=== PATIENT | male | born 1990 | race Hispanic/Latino ===

== ENCOUNTER 2019-05-02 22:24 | Inpatient (IN) | payer SELFPAY ==
[2019-05-02 23:12] LABS: #Basophils 0.1 thou/uL (0.0-0.2); #Eosinphils 0.1 thou/uL (0.0-0.7); #Lymphocytes 2.4 thou/uL (1.20-3.40); #Monocytes 0.6 thou/uL (0.11-0.59); %Eosinophils 0.7 % (0.0-10.0); %Lymphocytes 29.4 % (21.0-51.0); %Neutrophils 61.9 % (42.0-75.0); Hemoglobin 16.2 g/dL (14.0-18.0); Mean Corpuscular HGB CONC 35.6 g/dL (32.0-36.0); Mean Corpuscular Hemoglobin 30.2 pg (27.0-31.0); Mean Corpuscular Volume 84.7 fL (78.0-98.0); Mean Platelet Volume 8.8 fL (7.4-10.4); Platelet Count 229 thou/uL (130-400); RBC Distribution Width 12.1 % (11.5-14.5); Red Blood Cell (RBC) Count 5.38 mill/uL (4.70-6.10); White Blood Cell (WBC) Count 8.1 thou/uL (4.8-10.8)
--- NOTE | 2019-05-02 23:16 | RAD ---
PORTABLE CHEST ONE VIEW: 05/02/19 at 11:05 p.m. HISTORY: Worsening vision, polyuria. FINDINGS: Comparison made with exam of 06/05/16. The heart size is normal. The lungs are expanded without focal areas of consolidation, pneumothoraces , or pleural effusions. IMPRESSION: No acute process. POS: [facility]
[2019-05-02 23:19] LABS: Bilirubin Negative (Negative); Blood, Urine Negative (Negative); Clarity Clear (Clear); Glucose, Urine (Dipstick) Greater than 1000 mg/dL (Negative); Leukocyte Negative Leu/uL (Negative); Nitrite Negative (Negative); Protein, Urine (Dipstick) Negative (Neg-Trace); Urobilinogen Normal mg/dL (Less than 2)
[2019-05-02 23:33] LABS: ALT (SGPT) 83 U/L (8-55); AST (SGOT) 37 U/L (5-34); Albumin 4.7 g/dL (3.5-5.0); Alkaline Phosphatase 200 U/L (40-150); Anion Gap 21 mmol/L (10-20); BUN (Urea Nitrogen) 12 mg/dL (8.9-20.6); Bilirubin, Total 1.1 mg/dL (0.2-1.2); Calc. Creatinine Clearance 0 mL/min (70-130); Calcium 10.3 mg/dL (7.8-10.44); Carbon Dioxide 21 mmol/L (22-29); Chloride 86 mmol/L (98-107); Estimated GFR-MDRD 51; Globulin 3.9 g/dL (2.4-3.5); Potassium 4.2 mmol/L (3.5-5.1); Protein, Total 8.6 g/dL (6.0-8.3); Sodium 124 mmol/L (136-145)
[2019-05-02 23:44] LABS: Glucose 749 mg/dL (70-105)
[2019-05-03 00:01] LABS: Base Excess-Venous 0.7 mmol/L (-2.0 to 3.0); Bicarbonate (HCO3v) 25.2 mmol/L (22.0-28.0); CO2 Tension (PvCO2) 39.3 mmHg (40.0-50.0); Calcium, Ionized 1.15 mmol/L (See Comments:); Chloride 97 mmol/L (98-107); Hemoglobin - Calc 16.2 g/dL (14.0-18.0); Potassium 3.9 mmol/L (3.5-5.1); Sodium 133 mmol/L (138-145); T. Carbon Dioxide 26.5 mmol/L (22.0-28.0); vO2 Saturation-calc 86.8 % (60.0-85.0)
[2019-05-03 00:35] LABS: Hemoglobin A1c 10.3 % (4.0-6.0)
[2019-05-03 02:13] VITALS: BMI 41.8
[2019-05-03] MEDS ORDERED: Dextrose 5% in Water 1,000 ML IV PRN (03:33)
[2019-05-03] MEDS ORDERED: Dextrose 50% Abboject 50 ML SYRINGE SLOW IVP PRN (03:33)
[2019-05-03] MEDS ORDERED: hydrALAZINE 20 MG/ML VIAL SLOW IVP PRN (03:33)
--- NOTE | 2019-05-03 04:01 | HP ---
CHIEF COMPLAINT: Feeling thirsty and going to the bathroom a lot. HISTORY OF PRESENT ILLNESS: Mr. Mae is a pleasant 28-year-old gentleman, who has no prior past medical history. He notes that in the last couple of weeks, he has been getting much more thirsty a lot and also was having to get up to go the bathroom often. He also noted some abdominal bloating and as a result, he got some colon health pills [id number]. He started taking these, but then noticed that his symptoms got progressively worse. He started vomiting off and on and then on the day of admission, was vomiting quite often and having quite a bit of gagging. For this reason, he came to the ER and was found to have an elevated blood glucose of 749 and for this reason, he is being admitted to the hospital for new onset diabetes. He denies having any fevers or chills. No night sweats and in general, no other symptoms. REVIEW OF SYSTEMS: CONSTITUTIONAL: There have been no fevers or chills. No night sweats. No weight loss. HEENT: He denies any headaches, but he has had some blurred vision. No sore throat. No rhinorrhea or neck pain. No adenopathy. PULMONARY: No hemoptysis. No cough. No wheezing. CARDIOVASCULAR: He denies any chest pain. No shortness of breath. No PND. No orthopnea. GASTROINTESTINAL: No abdominal pain, but he has had some nausea and vomiting. No hematemesis. No melena. GENITOURINARY: He did have some urinary frequency, but no hematuria. MUSCULOSKELETAL: No muscle pain, weakness, or joint pains. NEUROLOGIC: No focal weakness or numbness. No seizures. PSYCHIATRIC: No symptoms of anxiety or depression. SKIN AND INTEGUMENT: No skin changes. No rash. PAST MEDICAL HISTORY: Negative. PAST SURGICAL HISTORY: He has had a cholecystectomy. ALLERGIES: NO KNOWN DRUG ALLERGIES. SOCIAL HISTORY: He is engaged. He has 3 children. He is a nonsmoker. He occasionally drinks. He works in construction. FAMILY HISTORY: Significant for hypertension and his cousin has diabetes. CURRENT MEDICATIONS: None. PHYSICAL EXAMINATION: GENERAL: He is alert and oriented. He appears to be in no acute distress. He is well developed and well nourished. He does have morbid obesity. He is 5 feet 7 inches, 267 pounds with BMI of 41.8. VITAL SIGNS: Blood pressure was 146/92, heart rate 84, respiratory rate of 20, and temperature is 98.1. HEENT: His pupils are equal, round, and reactive. Extraocular muscles are intact. His sclerae are anicteric. Throat, there is no erythema. No exudates. NECK: No adenopathy. No bruits. LUNGS: Clear to auscultation. There is no wheezing, no rales, no rhonchi. CARDIOVASCULAR: He has a normal S1, S2. There is no S3 or S4. No murmurs, clicks, or rubs. ABDOMEN: Obese. It is soft. It is nontender, nondistended. Positive for bowel sounds. There is no rebound. No guarding. No organomegaly. EXTREMITIES: On his extremities, there is no clubbing or cyanosis. No edema. NEUROLOGICAL: The exam is nonfocal. LABORATORY DATA: Sodium is 124, potassium 4.2, chloride is 86, CO2 is 21, BUN of 12, creatinine of 1.6, and glucose is 749. Currently, the blood glucose is 385. IMAGING: He had a chest x-ray showing no acute process. Heart size is normal with no infiltrates or effusions. This is by my reading. ASSESSMENT: This is a pleasant 28-year-old gentleman, who presents to the emergency room with new onset diabetes mellitus. He also has an elevated creatinine and likely has some acute kidney injury, likely due to volume depletion due to the uncontrolled diabetes and also it was noted he has an elevation in his liver function test, in which the etiology is not 100% clear. 1. With regard to new onset diabetes, we will start him on IV fluids due to the volume depletion. I suspect that his renal function will improve and with his body habitus, I suspect he is a type 2 diabetic. Therefore, we will start him on metformin and glyburide and monitor his blood glucose and hopefully, he can forego the initiation of insulin at this time. 2. Acute kidney injury. We will continue IV hydration and recheck his renal function in the a.m. 3. Elevated liver function tests. We will get an abdominal ultrasound as well as a hepatitis panel, but I suspect it could be due to steatohepatitis. Further recommendations depend on the patient's clinical course. Job ID: [id number]
[2019-05-03] MEDS: Sodium Chloride 0.9% 1,000 ML IV SCH ×2 (05:08→13:30)
[2019-05-03] MEDS: HumaLOG 300 UNITS/3 ML VIAL SC PRN ×4 (05:08→20:01)
[2019-05-03] MEDS ORDERED: metFORMIN 500 MG TAB PO SCH (08:00)
[2019-05-03 08:16] LABS: Anion Gap 12 mmol/L (10-20); BUN (Urea Nitrogen) 11 mg/dL (8.9-20.6); Calc. Creatinine Clearance 193 mL/min (70-130); Calcium 9.1 mg/dL (7.8-10.44); Carbon Dioxide 25 mmol/L (22-29); Chloride 101 mmol/L (98-107); Estimated GFR-MDRD Greater than 90; Glucose 295 mg/dL (70-105); Potassium 3.5 mmol/L (3.5-5.1); Sodium 134 mmol/L (136-145)
[2019-05-03 08:34] LABS: HBSAg Index 0.16 S/CO (0-0.99); Hep B Surf Ag Non-Reactive S/CO (NonReactive); Hep C IgG Ab Non-Reactive (NonReactive); Hep C Index 0.09 S/CO (0-0.79)
[2019-05-03 08:36] LABS: HBCM Index 0.06 S/CO (0-0.79); Hepatitis B Core IgM Abs Non-Reactive (NonReactive)
[2019-05-03 09:22] LABS: Hep A IgM AB Non-Reactive (NonReactive); Hep A IgM S/CO 0.29 S/CO (0-0.79)
[2019-05-03] MEDS: glyBURIDE 5 MG TAB PO SCH (10:41)
[2019-05-03] MEDS: Enoxaparin Sodium 40 MG/0.4 ML SYRINGE SC SCH (10:42)
--- NOTE | 2019-05-03 11:42 | PDOC.HOSPP ---
- Subjective Encounter Date: 05/03/19 Encounter Time: 11:40 Subjective: Patient seen and examined, no new issues or complaints. - Objective Vital Signs & Weight: Vital Signs (12 hours) Temp Pulse Resp BP Pulse Ox 05/03/19 07:35 96 05/03/19 07:26 98.0 F 72 18 142/89 H 96 05/03/19 04:00 97.9 F 82 18 144/92 H 96 05/03/19 01:40 98.1 F 84 20 146/92 H 97 Weight Weight 267 lb 3.2 oz Result Diagrams: 05/02/19 23:01 05/03/19 07:40 Additional Labs: Accuchecks 05/03/19 05/03/19 05/03/19 11:02 04:27 01:43 POC Glucose 293 H 414 H 385 H 05/03/19 01:06 POC Glucose 483 H Hospitalist ROS - Medication Medications: Active Medications Generic Name Dose Route Start Last Admin Trade Name Freq PRN Reason Stop Dose Admin Enoxaparin Sodium 40 mg 05/03/19 09:00 05/03/19 10:42 Lovenox SC 40 mg 0900 JOHANA Administration Glyburide 5 mg 05/03/19 08:00 05/03/19 10:41 Diabeta PO 5 mg QAM-WM JOHANA Administration Sodium Chloride 1,000 mls @ 100 mls/hr 05/03/19 03:45 05/03/19 05:08 Normal Saline 0.9% IV 1,000 mls .Q10H JOHANA Administration Insulin Human Lispro 0 units 05/03/19 03:33 05/03/19 11:34 Humalog SC 6 unit .MODERATE SLIDING SC PRN Administration Moderate Correctional Scale - Exam General Appearance: NAD, awake alert General - other findings: obese Eye: PERRL, anicteric sclera ENT: normocephalic atraumatic, no oropharyngeal lesions Neck: supple, symmetric, no JVD, no thyromegaly Heart: RRR, no murmur, no gallops, no rubs Respiratory: CTAB, no wheezes, no rales, no ronchi Gastrointestinal: soft, non-tender, non-distended, normal bowel sounds Hosp A/P (1) Diabetes mellitus, new onset Code(s): E11.9 - TYPE 2 DIABETES MELLITUS WITHOUT COMPLICATIONS Status: Acute (2) THOM (acute kidney injury) Code(s): N17.9 - ACUTE KIDNEY FAILURE, UNSPECIFIED Status: Acute (3) Hypertension Code(s): I10 - ESSENTIAL (PRIMARY) HYPERTENSION Status: Acute - Plan - will DC metformin for now, given THOM risk of metabolic acidosis high - cont with sliding scale and glyburide - ULI/ARB - can DC with metformin but will avoid in presence of the THOM - labs in AM - case and plan d/w patient at length, he understood and agreed with this plan.
--- NOTE | 2019-05-03 11:52 | ULT ---
ABDOMINAL ULTRASOUND: Date: 05/03/19 COMPARISON: None. HISTORY: Abnormal liver function tests. FINDINGS: The visualized IVC and aorta appear grossly unremarkable. Detailed assessment of the abdomen/pelvis l imited on the basis of bowel gas and body habitus. The pancreas is not discretely visualized. The hep atic parenchyma is heterogeneous and echogenic suggesting hepatic steatosis. This limits assessment f or focal liver lesion and biliary dilatation. The patient reports history of cholecystectomy. Right kidney measures 12.7 cm in craniocaudal dimension and demonstrates no stone, hydronephrosis, or mass lesion. Common bile duct and main portal vein cannot be adequately visualized secondary to body habitus and b owel gas. Spleen appears mildly enlarged, measuring up to 13.7 cm. Detailed assessment of the left ki dney is limited. Left kidney measures 13.9 cm craniocaudal dimension and demonstrates no stone, hydro nephrosis, or mass. IMPRESSION: Technically limited examination demonstrating findings suggesting hepatic steatosis. Status post chol ecystectomy. POS: OFF
[2019-05-03] MEDS: Acetaminophen 325 MG TAB PO PRN (20:02)
[2019-05-04] MEDS: Sodium Chloride 0.9% 1,000 ML IV SCH ×2 (00:45→08:58)
[2019-05-04] MEDS: Acetaminophen 325 MG TAB PO PRN (03:59)
[2019-05-04 05:49] LABS: Anion Gap 16 mmol/L (10-20); BUN (Urea Nitrogen) 11 mg/dL (8.9-20.6); Calc. Creatinine Clearance 208 mL/min (70-130); Calcium 8.7 mg/dL (7.8-10.44); Carbon Dioxide 19 mmol/L (22-29); Chloride 102 mmol/L (98-107); Estimated GFR-MDRD Greater than 90; Glucose 286 mg/dL (70-105); Potassium 3.6 mmol/L (3.5-5.1); Sodium 133 mmol/L (136-145)
[2019-05-04 05:52] LABS: #Basophils 0.1 thou/uL (0.0-0.2); #Eosinphils 0.2 thou/uL (0.0-0.7); #Lymphocytes 2.5 thou/uL (1.20-3.40); #Monocytes 0.4 thou/uL (0.11-0.59); #Neutrophils 4.5 thou/uL (1.40-6.50); %Basophils 0.8 % (0.0-1.0); %Eosinophils 2.6 % (0.0-10.0); %Lymphocytes 32.8 % (21.0-51.0); %Monocytes 5.1 % (0.0-10.0); %Neutrophils 58.6 % (42.0-75.0); Hemoglobin 13.9 g/dL (14.0-18.0); Mean Corpuscular HGB CONC 35.8 g/dL (32.0-36.0); Mean Corpuscular Hemoglobin 29.6 pg (27.0-31.0); Mean Corpuscular Volume 82.7 fL (78.0-98.0); Mean Platelet Volume 8.2 fL (7.4-10.4); Platelet Count 179 thou/uL (130-400); RBC Distribution Width 11.9 % (11.5-14.5); Red Blood Cell (RBC) Count 4.71 mill/uL (4.70-6.10); White Blood Cell (WBC) Count 7.6 thou/uL (4.8-10.8)
[2019-05-04] MEDS: HumaLOG 300 UNITS/3 ML VIAL SC PRN ×4 (05:53→20:43)
[2019-05-04] MEDS: glyBURIDE 5 MG TAB PO SCH (08:54)
[2019-05-04] MEDS: Enoxaparin Sodium 40 MG/0.4 ML SYRINGE SC SCH (08:54)
--- NOTE | 2019-05-04 12:48 | PDOC.HOSPP ---
- Subjective Encounter Date: 05/04/19 Encounter Time: 11:45 Subjective: no abd pain or sob at bedside feels better, is catching up lost sleep per patient - Objective Vital Signs & Weight: Vital Signs (12 hours) Temp Pulse Resp BP Pulse Ox 05/04/19 08:00 97.5 F L 64 18 150/99 H 97 05/04/19 04:00 98.3 F 73 18 148/97 H 98 Weight Weight 267 lb 3.2 oz I&O: 05/03/19 05/04/19 05/05/19 06:59 06:59 06:59 Intake Total 3920 Balance 3920 Result Diagrams: 05/04/19 05:07 05/04/19 05:07 Additional Labs: Accuchecks 05/04/19 05/04/19 05/04/19 12:00 04:36 00:51 POC Glucose 260 H 277 H 361 H 05/03/19 05/03/19 19:56 16:14 POC Glucose 261 H 373 H Hospitalist ROS - Medication Medications: Active Medications Generic Name Dose Route Start Last Admin Trade Name Freq PRN Reason Stop Dose Admin Acetaminophen 650 mg 05/03/19 03:33 05/04/19 03:59 Tylenol PO 650 mg Q4H PRN Administration Headache/Fever/Mild Pain (1-3) Enoxaparin Sodium 40 mg 05/03/19 09:00 05/04/19 08:54 Lovenox SC 40 mg 0900 JOHANA Administration Glyburide 5 mg 05/03/19 08:00 05/04/19 08:54 Diabeta PO 5 mg QAM-WM JOHANA Administration Sodium Chloride 1,000 mls @ 100 mls/hr 05/03/19 03:45 05/04/19 08:58 Normal Saline 0.9% IV 1,000 mls .Q10H JOHANA Administration Insulin Human Lispro 0 units 05/03/19 03:33 05/04/19 12:00 Humalog SC 6 unit .MODERATE SLIDING SC PRN Administration Moderate Correctional Scale Insulin Human Lispro 0 units 05/03/19 03:33 05/03/19 20:01 Humalog SC 3 unit .BEDTIME SLIDING SC PRN Administration Bedtime Correctional Scale - Exam General Appearance: NAD, awake alert Eye: PERRL, anicteric sclera ENT: no oropharyngeal lesions, moist mucosa Neck: supple, no JVD Heart: RRR, no murmur Respiratory: no wheezes, no rales Gastrointestinal: soft, non-tender, normal bowel sounds Extremities: no cyanosis, no clubbing, no edema Skin: normal turgor, no lesions Neurological: CN's grossly intact, no focal deficits Psychiatric: normal affect, A&O x 3 Hosp A/P (1) Diabetes mellitus, new onset Code(s): E11.9 - TYPE 2 DIABETES MELLITUS WITHOUT COMPLICATIONS Status: Acute (2) THOM (acute kidney injury) Code(s): N17.9 - ACUTE KIDNEY FAILURE, UNSPECIFIED Status: Resolved (3) Obesity Code(s): E66.9 - OBESITY, UNSPECIFIED Status: Chronic Qualifiers: Obesity classification: adult class 3 (BMI >= 40) Body mass index: BMI 40.0 -44.9 (4) Hypertension Code(s): I10 - ESSENTIAL (PRIMARY) HYPERTENSION Status: Chronic Qualifiers: Hypertension type: essential hypertension Qualified Code(s): I10 - Essential (primary) hypertension - Plan on glyburide, add metformin (renal function is normal) hemostable dc plan in am encourage po fluid intake, will dc iv fluids to amb as tolerated diabetic and dietary education prior to discharge
[2019-05-04] MEDS: Ibuprofen 200 MG TAB PO PRN (14:04)
[2019-05-04] MEDS: Cepastat Lozenges 1 LOZ PO PRN ×2 (15:53→23:05)
[2019-05-04] MEDS: metFORMIN 500 MG TAB PO SCH (17:23)
[2019-05-05] MEDS: Ibuprofen 200 MG TAB PO PRN ×2 (01:04→12:26)
[2019-05-05] MEDS: HumaLOG 300 UNITS/3 ML VIAL SC PRN ×2 (05:27→12:19)
[2019-05-05] MEDS: metFORMIN 500 MG TAB PO SCH (08:26)
[2019-05-05] MEDS: glyBURIDE 5 MG TAB PO SCH (08:26)
[2019-05-05] MEDS: Enoxaparin Sodium 40 MG/0.4 ML SYRINGE SC SCH (08:26)
[2019-05-05 12:35] VITALS: BP 146/97; TEMP 98.8
--- NOTE | 2019-05-05 15:55 | DIS ---
DATE OF ADMISSION: 05/03/2019 DATE OF DISCHARGE: 05/05/2019 DISCHARGE DISPOSITION: Home. PRIMARY DISCHARGE DIAGNOSES: New-onset diabetes mellitus type 2; obesity; mild hypertension; acute kidney injury on arrival, resolved. PROCEDURES DONE DURING HOSPITALIZATION: Chest x-ray done, showed no acute process. Right upper quadrant abdominal ultrasound done, showed prior history of cholecystectomy, hepatic steatosis was incidentally noted. Urine culture, no growth. Hemoglobin and hematocrit 13 and 38, platelet count 179, MCV is 82. Initial BUN and creatinine were 12 and 1.6 with serum glucose of 749 on admission. HbA1c 10.3. TSH 2.91. Hepatitis panel was negative. DISCHARGE MEDICATIONS: 1. Glyburide 5 mg p.o. daily. 2. Metformin 500 mg p.o. twice daily. ALLERGIES: NO KNOWN DRUG ALLERGIES. DISCHARGE PLAN: The patient to follow up with primary care physician in 1 week. He has been advised to check fingerstick glucose twice daily and record for a period of 10 days to follow up with primary care physician for changes in his medication. BRIEF COURSE DURING HOSPITALIZATION: The patient initially came to ER with complaints of feeling thirsty and urinating a lot. He was found to be a new diabetic and had acute kidney injury as well with moderate to severe dehydration. The patient was aggressively hydrated and was slowly titrated on medications for his diabetes. He was also given diabetic education along with counseling regarding diet and exercise. His acute kidney injury is completely resolved. He is tolerating oral solid diet, ambulating, and eating well prior to discharge. He is hemodynamically stable and will be shortly discharged home. He has been placed on glyburide and metformin. He is counseled to check fingerstick glucose twice daily and record to follow up with his primary care physician for any changes to be made for his diabetic medication. The patient plans to go to [employer] with tax papers, so he can get healthcare and medication help. Please note, I have seen and examined the patient on the day of discharge. Job ID: [id number]
== END 2019-05-05 12:52 | disposition home or self-care (01) | DRG 638 ==
LOC: ERS 22:24 → T4-B 05-03 00:17
PROVIDERS: ADMIT Internal Medicine; ATTEND Internal Medicine
DX: E11.9 Type 2 diabetes mellitus without complications (principal); N17.9 Acute kidney failure, unspecified; Z68.41 Body mass index [BMI] 40.0-44.9, adult; Z90.49 Acquired absence of other specified parts of digestive tract; R74.8 Abnormal levels of other serum enzymes; I10 Essential (primary) hypertension; E66.9 Obesity, unspecified
CPT/HCPCS: 36415; 36416; 71045; 76700; 80048; 80053; 80074; 81003; 82010; 82330; 82435; 82803; 83036; 84132; 84295; 84443; 85014; 85025; 87086; 96360; 96361; J1650

== ENCOUNTER 2020-07-12 14:22 | Inpatient (IN) | payer SELFPAY ==
[2020-07-12 15:27] LABS: #Basophils 0.1 thou/uL (0.0-0.2); #Eosinphils 0.1 thou/uL (0.0-0.7); #Monocytes 0.6 thou/uL (0.11-0.59); #Neutrophils 4.8 thou/uL (1.40-6.50); %Basophils 1.1 % (0.0-1.0); %Eosinophils 1.1 % (0.0-10.0); %Lymphocytes 26.2 % (21.0-51.0); %Monocytes 7.5 % (0.0-10.0); %Neutrophils 64.2 % (42.0-75.0); Hemoglobin 16.1 g/dL (14.0-18.0); Mean Corpuscular HGB CONC 36.2 g/dL (32.0-36.0); Mean Corpuscular Volume 85.7 fL (78.0-98.0); Mean Platelet Volume 8.8 fL (7.4-10.4); Platelet Count 253 thou/uL (130-400); Red Blood Cell (RBC) Count 5.18 mill/uL (4.70-6.10); White Blood Cell (WBC) Count 7.5 thou/uL (4.8-10.8)
[2020-07-12 15:40] LABS: Bilirubin Negative (Negative); Blood, Urine Negative (Negative); Clarity Clear (Clear); Glucose, Urine (Dipstick) Greater than 1000 mg/dL (Negative); Ketone, Urine Negative (Negative); Leukocyte Negative Leu/uL (Negative); Nitrite Negative (Negative); Protein, Urine (Dipstick) Negative (Neg-Trace); Specific Gravity, Urine 1.027 (1.002-1.036); Urobilinogen Normal mg/dL (Less than 2); pH, Urine 6.5 (5.0-9.0)
[2020-07-12 15:46] LABS: ALT (SGPT) 30 U/L (8-55)
[2020-07-12 15:52] LABS: AST (SGOT) 23 U/L (5-34); Alkaline Phosphatase 190 U/L (40-110); Anion Gap 18 mmol/L (10-20); BUN (Urea Nitrogen) 16 mg/dL (8.9-20.6); Bilirubin, Total 0.7 mg/dL (0.2-1.2); Calc. Creatinine Clearance 0 mL/min (70-130); Calcium 9.1 mg/dL (7.8-10.44); Carbon Dioxide 24 mmol/L (22-29); Chloride 86 mmol/L (98-107); Estimated GFR-MDRD 43; Globulin 4.9 g/dL (2.4-3.5); Phosphorus 3.7 mg/dL (2.3-4.7); Potassium 5.5 mmol/L (3.5-5.1); Protein, Total 8.9 g/dL (6.0-8.3); Sodium 122 mmol/L (136-145)
[2020-07-12 16:00] LABS: Glucose 977 mg/dL (70-105)
[2020-07-12] MEDS ORDERED: Insulin Regular 300 UNITS/3 ML VIAL ONE (16:19)
[2020-07-12 17:08] LABS: Base Excess-Venous -1.3 mmol/L (-2.0 to 3.0); Bicarbonate (HCO3v) 22.8 mmol/L (22.0-28.0); CO2 Tension (PvCO2) 35.7 mmHg (40.0-50.0); Calcium, Ionized 0.91 mmol/L (1.15-1.33); Chloride 92 mmol/L (98-107); Potassium 5.7 mmol/L (3.5-5.1); Sodium 122 mmol/L (138-145); T. Carbon Dioxide 23.9 mmol/L (22.0-28.0); vO2 Saturation-calc 99.5 % (60.0-85.0)
[2020-07-12 18:51] LABS: Critical Call Chemistry D; Glucose 614 mg/dL (70-105)
[2020-07-12] MEDS ORDERED: Insulin Regular 100 units/100 ml in NS IVPB SCH (20:15)
[2020-07-12] MEDS ORDERED: Ondansetron ODT 4 MG TAB SL PRN (23:00)
[2020-07-12] MEDS: Sodium Chloride 0.9% 1,000 ML IV SCH (23:00)
[2020-07-12] MEDS ORDERED: Ondansetron PF 4 MG/2 ML Vial IVP PRN (23:00)
[2020-07-12] MEDS ORDERED: Acetaminophen 325 MG TAB PO PRN (23:00)
[2020-07-12] MEDS ORDERED: Metoprolol Tartrate 5 MG/5 ML VIAL IVP PRN (23:41)
[2020-07-13 00:04] VITALS: BMI 40.2
[2020-07-13] MEDS ORDERED: FLU VACC QS2020-21(6MOS UP)/PF 60 MCG/0.5 ML SYRINGE IM ONE ×2 (00:15→09:00)
[2020-07-13 00:41] LABS: Anion Gap 18 mmol/L (10-20); BUN (Urea Nitrogen) 14 mg/dL (8.9-20.6); Calc. Creatinine Clearance 173 mL/min (70-130); Calcium 8.8 mg/dL (7.8-10.44); Carbon Dioxide 19 mmol/L (22-29); Chloride 102 mmol/L (98-107); Estimated GFR-MDRD 88; Glucose 351 mg/dL (70-105); Potassium 3.6 mmol/L (3.5-5.1); Sodium 135 mmol/L (136-145)
--- NOTE | 2020-07-13 00:43 | HP ---
REASON FOR ADMISSION: Increased sleepiness and uncontrolled blood sugar level. 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 He also has not been taking his blood pressure medication and for the past 3 weeks, his sugar has been elevated. He has been urinating a lot and having episodes of diarrhea. He felt that he is going to pass out today and that is why he came to the ER. He was found to have a glucose level of 500. He was started on insulin drip and currently he is in the [facility]. PAST MEDICAL HISTORY: 1. Diabetes. 2. High blood pressure. SOCIAL HISTORY: Quit smoking 4 months ago. PAST SURGICAL HISTORY: Cholecystectomy. ALLERGIES: NO NOTE OF ANY DRUG ALLERGY. FAMILY HISTORY: Negative for premature coronary artery disease. REVIEW OF SYSTEMS: All systems reviewed; except for the above mentioned, found to be negative. PHYSICAL EXAMINATION: GENERAL: Awake, alert, oriented, does not appear in distress. VITAL SIGNS: His blood pressure is 142/87, his heart rate is 104, saturating 99% on room air, temperature is 97.7. HEENT: Head is nontraumatic, normocephalic. Pupils equal, reactive. Extraocular movements are intact. Nonicteric sclerae. Well-injected conjunctivae. Oral mucosa normal. Nasal mucosa normal. NECK: Supple. No adenopathy. No murmur. Thyroid is not palpable. Trachea is midline. No supraclavicular adenopathy. HEART: S1, S2 regular. No murmurs. No gallops. No friction rubs noted. No displacement of PMI. LUNGS: Clear to auscultation bilaterally. No wheezes, rhonchi, or crackles. ABDOMEN: Bowel sounds are positive. Nontender abdomen. No hepatosplenomegaly. EXTREMITIES: No lower extremity edema. No cyanosis. NEUROLOGIC: Cranial nerves 2-12 within normal limits. Normal motor function. Normal sensory function. Normal reflexes. LABORATORY DATA: Blood work shows WBC 7.5, hemoglobin 16.1, platelets of 253. ABG shows a pH of 7.412. Sodium of 122, potassium 5.7, anion gap of 18. Urinalysis is negative for infection. ASSESSMENT AND PLAN: This is a 29-year-old male patient, presenting with hyperosmotic nonketotic hyperglycemia. He is admitted to the [facility] and he is on insulin drip. We will continue with that following our protocol. We will continue with aggressive fluid hydration. When his glycemic level is controlled, we can switch him to an insulin sliding scale and long-acting insulin. For DVT prophylaxis, he will be on Lovenox. For high blood pressure, he will be on Lopressor IV on as needed basis. Job ID: [id number]
[2020-07-13 03:42] LABS: Anion Gap 15 mmol/L (10-20); BUN (Urea Nitrogen) 14 mg/dL (8.9-20.6); Calc. Creatinine Clearance 201 mL/min (70-130); Calcium 8.7 mg/dL (7.8-10.44); Carbon Dioxide 17 mmol/L (22-29); Chloride 107 mmol/L (98-107); Estimated GFR-MDRD Greater than 90; Glucose 238 mg/dL (70-105); Potassium 4.3 mmol/L (3.5-5.1); Sodium 135 mmol/L (136-145)
[2020-07-13 05:07] LABS: Band 1 % (5-11); Eosinophils 4 % (0-10); Hemoglobin 15.4 g/dL (14.0-18.0); Lymphocytes 35 % (21-51); MDiff Complete? YES; Mean Corpuscular HGB CONC 36.4 g/dL (32.0-36.0); Mean Corpuscular Hemoglobin 30.4 pg (27.0-31.0); Mean Corpuscular Volume 83.6 fL (78.0-98.0); Mean Platelet Volume 8.8 fL (7.4-10.4); Monocytes 9 % (0-10); Neutrophil 50 % (42-75); Platelet Count 190 thou/uL (130-400); RBC Distribution Width 11.9 % (11.5-14.5); Reactive Lymphocytes 1 % (0-10); Red Blood Cell (RBC) Count 5.06 mill/uL (4.70-6.10); White Blood Cell (WBC) Count 9.2 thou/uL (4.8-10.8)
[2020-07-13] MEDS: Sodium Chloride 0.9% 1,000 ML IV SCH (06:17)
--- NOTE | 2020-07-13 07:13 | PDOC.HOSPP ---
- Subjective Encounter Date: 07/13/20 Encounter Time: 07:09 Subjective: feels better, more alert - Objective Vital Signs & Weight: Vital Signs (12 hours) Temp Pulse Ox 07/13/20 04:00 97.3 F L 07/12/20 23:59 97.7 F 07/12/20 22:56 98.8 F 07/12/20 22:45 99 Weight Weight 249 lb 4.8 oz Result Diagrams: 07/13/20 03:20 07/13/20 03:20 Additional Labs: Accuchecks 07/13/20 07/13/20 07/13/20 05:00 04:12 03:05 POC Glucose 190 H 186 H 259 H 07/13/20 07/13/20 07/12/20 02:20 00:46 23:43 POC Glucose 258 H 289 H 370 H 07/12/20 07/12/20 23:07 21:08 POC Glucose 336 H 378 H Hospitalist ROS - Medication Medications: Active Medications Generic Name Dose Route Start Last Admin Trade Name Hiramq PRN Reason Stop Dose Admin Sodium Chloride 1,000 mls @ 125 mls/hr 07/12/20 23:00 07/13/20 06:17 Normal Saline 0.9% IV 07/13/20 08:20 1,000 mls .Q8H JOHANA Administration - Exam General Appearance: awake alert Neck: no JVD Heart: RRR, no murmur Respiratory: CTAB Gastrointestinal: soft, non-distended, normal bowel sounds Extremities: no edema Hosp A/P (1) DM (diabetes mellitus), type 2, uncontrolled, with hyperosmolarity Code(s): E11.00 - TYPE 2 DIAB W HYPROSM W/O NONKET HYPRGLY-HYPROS COMA ([facility]); E11.65 - TYPE 2 DIABETES MELLITUS WITH HYPERGLYCEMIA Status: Acute (2) Non compliance w medication regimen Code(s): Z91.14 - PATIENT'S OTHER NONCOMPLIANCE WITH MEDICATION REGIMEN Status: Acute (3) Hypertension Code(s): I10 - ESSENTIAL (PRIMARY) HYPERTENSION Status: Chronic Qualifiers: Hypertension type: essential hypertension Qualified Code(s): I10 - Essential (primary) hypertension - Plan HgA1c DC iv insulin accu/ss/ start levemir ULI for HTN
[2020-07-13] MEDS ORDERED: Dextrose 50% Abboject 50 ML SYRINGE SLOW IVP PRN (07:17)
[2020-07-13] MEDS ORDERED: Dextrose 5% in Water 1,000 ML IV PRN (07:17)
[2020-07-13] MEDS: Heparin 5,000 UNITS/ML VIAL SC SCH ×3 (07:20→20:59)
[2020-07-13] MEDS: Lisinopril 5 MG TAB PO SCH (07:24)
[2020-07-13 08:16] LABS: Hemoglobin A1c Greater than 14.0 % (4.0-6.0)
[2020-07-13] MEDS: Insulin Glargine 10 UNITS in Pre-Filled Syringe 1 EACH SC SCH (09:20)
[2020-07-13] MEDS: HumaLOG 300 UNITS/3 ML VIAL SC PRN ×2 (18:10→20:59)
[2020-07-14] MEDS: HumaLOG 300 UNITS/3 ML VIAL SC PRN ×2 (06:11→11:03)
[2020-07-14 07:55] VITALS: TEMP 97.7
[2020-07-14] MEDS: Insulin Glargine 10 UNITS in Pre-Filled Syringe 1 EACH SC SCH (08:41)
[2020-07-14] MEDS: Lisinopril 5 MG TAB PO SCH (08:41)
[2020-07-14] MEDS: Heparin 5,000 UNITS/ML VIAL SC SCH (08:41)
[2020-07-14 09:20] LABS: Anion Gap 14 mmol/L (10-20); BUN (Urea Nitrogen) 10 mg/dL (8.9-20.6); Calc. Creatinine Clearance 182 mL/min (70-130); Carbon Dioxide 22 mmol/L (22-29); Chloride 102 mmol/L (98-107); Estimated GFR-MDRD Greater than 90; Glucose 340 mg/dL (70-105); Potassium 3.8 mmol/L (3.5-5.1); Sodium 134 mmol/L (136-145)
[2020-07-14 10:56] VITALS: BP 137/89
--- NOTE | 2020-07-14 11:13 | DIS ---
DATE OF ADMISSION: 07/12/2020 DATE OF DISCHARGE: 07/14/2020 PRIMARY CARE PHYSICIAN: None. FINAL DIAGNOSES: Type 2 diabetes with hyperosmolar state, hypertension, acidosis. DISCHARGE MEDICATIONS: 1. Insulin glargine 15 units subcu q.a.m. 2. Lisinopril 5 mg a day. ALLERGIES: NONE. CODE STATUS: Full. PENDING AT TIME OF DISCHARGE: Nothing. CONSULTATIONS: None. PROCEDURES: None. HOSPITAL COURSE: The patient admitted to the emergency room with high blood sugar and sleepiness. His laboratory, initial blood sugar was 977, put on insulin pump and it rapidly came down to lower than 400 level. The pump was stopped. Initially, he had a mild elevation of his potassium to 5.5 and 5.7, which resolved quickly. Initially, CO2 was normal. Liver functions were unremarkable. He did develop a mild acidosis, which resolved with IV fluids. The patient had been on metformin and an unknown antihypertensive in the past. He declined to take the metformin because it made him sick at his stomach and he could not work. At this time, the patient's blood sugar has been in the 200 to 300 range for 36 hours. He is very desirous of going home. Acidosis is resolved. He is being discharged. He needs a PCP. He has been told that he needs to find one and see in 7 days. His blood pressure is adequately controlled to 123/77 and 111/71. He feels well. Cardiorespiratory exam is normal. He is at marked risk for complications as he does not get his diabetes under control. His hemoglobin A1c was greater than 14. He has been explained complications and urged to comply with the physician and with medications. Job ID: [id number]
== END 2020-07-14 11:30 | disposition home or self-care (01) | DRG 638 ==
LOC: ERS 14:22 → IMCU/EMU 20:00 → ERS 22:21 → SJJU 07-13 23:19
PROVIDERS: ADMIT Internal Medicine; ATTEND Internal Medicine
DX: E11.00 Type 2 diabetes mellitus with hyperosmolarity without nonketotic hyperglycemic-hyperosmolar coma (NKHHC) (principal); E87.2 Acidosis; I10 Essential (primary) hypertension; Z87.891 Personal history of nicotine dependence; Z90.49 Acquired absence of other specified parts of digestive tract; Z91.14 Patient's other noncompliance with medication regimen
CPT/HCPCS: 36415; 36416; 80048; 80053; 81003; 82010; 82330; 82803; 83036; 83735; 83930; 84100; 85025; 96365; 96366; 96376; J1644; J1815; J3490